=== PATIENT | male | born 1960 | race American Indian/Alaskan Native ===

== ENCOUNTER 2017-10-12 01:47 | Inpatient (IN) | payer OTHER ==
[~2017-10-12] VITALS: Ht 175.3 cm; Wt 75.5 kg
[2017-10-12 02:12] LABS: BASOPHILS ABSOLUTE AUTO 0.09 K/mm3 (0.00-0.23); BASOPHILS PERCENT AUTO 1 % (0-2); EOSINOPHILS ABSOLUTE AUTO 0.28 K/mm3 (0.00-0.68); EOSINOPHILS PERCENT AUTO 3 % (0-6); Hematocrit 37.4 % (37.0-53.0); Hemoglobin 11.7 g/dL (13.5-17.5); IMMATURE GRAN ABSOLUTE AUTO 0.35 K/mm3 (0.00-0.10); IMMATURE GRAN PERCENT AUTO 4 % (0-1); LYMPHOCYTES ABSOLUTE AUTO 3.12 K/mm3 (0.84-5.20); LYMPHOCYTES PERCENT AUTO 32 % (21-46); MONOCYTES ABSOLUTE AUTO 0.67 K/mm3 (0.16-1.47); MONOCYTES PERCENT AUTO 7 % (4-13); Mean Corpuscular HGB 28.5 pg (26.0-34.0); Mean Corpuscular HGB Conc 31.3 g/dL (31.5-36.5); Mean Corpuscular Volume 91 fL (80-100); Mean Platelet Volume 9.5 fL (9.1-12.4); NEUTROPHILS ABSOLUTE AUTO 5.24 K/mm3 (1.96-9.15); NEUTROPHILS PERCENT AUTO 54 % (41-73); Platelet Count 260 K/mm3 (150-400); RDW Coefficient Variation 14.3 % (11.7-14.2); RDW Standard Deviation 47.4 fL (35.1-46.3); Red Blood Cell Count 4.11 M/mm3 (4.30-5.90); White Blood Cell Count 9.75 K/mm3 (4.00-11.30)
[2017-10-12 02:22] LABS: PCO2 Arterial 42.6 mmHg (35-45); PO2 Arterial 52.7 mmHg (80-100)
[2017-10-12 02:26] LABS: Troponin I <0.015 ng/mL (0.000-0.040)
[2017-10-12 02:27] LABS: Alanine Aminotransfer (ALT/SGP 19 U/L (12-78); Albumin, Blood 2.9 g/dL (3.4-5.0); Albumin/Globulin Ratio 0.6 (0.8-1.8); Alk Phos 74 U/L (50-136); Anion Gap 10 mmol/L (6-16); Aspartate Aminotrans (AST/SGOT 20 U/L (12-37); Bilirubin, Total 0.2 mg/dL (0.1-1.0); Blood Urea Nitrogen 20 mg/dL (8-24); Bun/Creatinine Ratio 15.6 (12.0-20.0); CO2, Blood 24 mmol/L (21-32); Calcium, Blood 8.2 mg/dL (8.5-10.1); Chloride, Blood 105 mmol/L (98-108); Creatinine, Blood 1.28 mg/dL (0.60-1.20); Globulin, Blood 4.8 g/dL (2.2-4.0); Glomerular Filtration Rate >60 (60-); Glucose, Blood 204 mg/dL (70-99); Potassium, Blood 3.9 mmol/L (3.5-5.5); Sodium, Blood 139 mmol/L (136-145); Total Protein, Blood 7.7 g/dL (6.4-8.2)
[2017-10-12] MEDS ORDERED: PRAZ1 PO (02:28)
[2017-10-12] MEDS ORDERED: QUET100 PO (02:28)
[2017-10-12] MEDS ORDERED: ATOR20 PO (02:28)
[2017-10-12] MEDS ORDERED: METO25ER PO (02:29)
[2017-10-12] MEDS ORDERED: MIRT15 PO (02:30)
[2017-10-12] MEDS ORDERED: ASPI81CH PO (02:30)
[2017-10-12] MEDS ORDERED: LORA.5 PO (02:30)
[2017-10-12] MEDS ORDERED: TIOT18 INH (02:31)
[2017-10-12] MEDS ORDERED: BUDE6HFA INH (02:31)
[2017-10-12] MEDS ORDERED: HYDPAM25 PO (02:31)
[2017-10-12] MEDS ORDERED: Atrovent Inha12.9 GM INH (02:32)
[2017-10-12] MEDS ORDERED: ALBU90OI INH (02:32)
[2017-10-12] MEDS ORDERED: Oxycodone HCl20 M1 PO (02:33)
[2017-10-12] MEDS ORDERED: FENTANYL1 EAC1 TOP (02:35)
[2017-10-13 15:04] LABS: BASOPHILS ABSOLUTE AUTO 0.12 K/mm3 (0.00-0.23); BASOPHILS PERCENT AUTO 1 % (0-2); EOSINOPHILS ABSOLUTE AUTO 0.42 K/mm3 (0.00-0.68); EOSINOPHILS PERCENT AUTO 4 % (0-6); Hematocrit 38.7 % (37.0-53.0); Hemoglobin 12.2 g/dL (13.5-17.5); IMMATURE GRAN ABSOLUTE AUTO 0.43 K/mm3 (0.00-0.10); IMMATURE GRAN PERCENT AUTO 4 % (0-1); LYMPHOCYTES ABSOLUTE AUTO 1.63 K/mm3 (0.84-5.20); LYMPHOCYTES PERCENT AUTO 16 % (21-46); MONOCYTES ABSOLUTE AUTO 1.16 K/mm3 (0.16-1.47); MONOCYTES PERCENT AUTO 12 % (4-13); Mean Corpuscular HGB 28.2 pg (26.0-34.0); Mean Corpuscular HGB Conc 31.5 g/dL (31.5-36.5); Mean Corpuscular Volume 90 fL (80-100); Mean Platelet Volume 8.9 fL (9.1-12.4); NEUTROPHILS ABSOLUTE AUTO 6.25 K/mm3 (1.96-9.15); NEUTROPHILS PERCENT AUTO 62 % (41-73); Platelet Count 281 K/mm3 (150-400); RDW Coefficient Variation 14.3 % (11.7-14.2); RDW Standard Deviation 46.6 fL (35.1-46.3); Red Blood Cell Count 4.32 M/mm3 (4.30-5.90); White Blood Cell Count 10.01 K/mm3 (4.00-11.30)
[2017-10-13 15:38] LABS: Bun/Creatinine Ratio 10.4 (12.0-20.0); Calcium, Blood 8.5 mg/dL (8.5-10.1); Creatinine, Blood 1.34 mg/dL (0.60-1.20)
[2017-10-15 04:52] LABS: BASOPHILS ABSOLUTE AUTO 0.07 K/mm3 (0.00-0.23); BASOPHILS PERCENT AUTO 1 % (0-2); EOSINOPHILS ABSOLUTE AUTO 0.38 K/mm3 (0.00-0.68); EOSINOPHILS PERCENT AUTO 5 % (0-6); Hematocrit 37.3 % (37.0-53.0); Hemoglobin 11.9 g/dL (13.5-17.5); IMMATURE GRAN ABSOLUTE AUTO 0.25 K/mm3 (0.00-0.10); IMMATURE GRAN PERCENT AUTO 3 % (0-1); LYMPHOCYTES ABSOLUTE AUTO 1.23 K/mm3 (0.84-5.20); LYMPHOCYTES PERCENT AUTO 15 % (21-46); MONOCYTES PERCENT AUTO 10 % (4-13); Mean Corpuscular HGB 28.7 pg (26.0-34.0); Mean Corpuscular HGB Conc 31.9 g/dL (31.5-36.5); Mean Corpuscular Volume 90 fL (80-100); Mean Platelet Volume 9.3 fL (9.1-12.4); NEUTROPHILS ABSOLUTE AUTO 5.68 K/mm3 (1.96-9.15); NEUTROPHILS PERCENT AUTO 68 % (41-73); Platelet Count 264 K/mm3 (150-400); RDW Coefficient Variation 14.3 % (11.7-14.2); RDW Standard Deviation 47.3 fL (35.1-46.3); Red Blood Cell Count 4.15 M/mm3 (4.30-5.90); White Blood Cell Count 8.41 K/mm3 (4.00-11.30)
[2017-10-15 05:18] LABS: Bun/Creatinine Ratio 11.1 (12.0-20.0); Calcium, Blood 8.6 mg/dL (8.5-10.1); Creatinine, Blood 1.35 mg/dL (0.60-1.20); Potassium, Blood 4.2 mmol/L (3.5-5.5)
[2017-10-17 05:14] LABS: BASOPHILS ABSOLUTE AUTO 0.06 K/mm3 (0.00-0.23); BASOPHILS PERCENT AUTO 1 % (0-2); EOSINOPHILS ABSOLUTE AUTO 0.35 K/mm3 (0.00-0.68); EOSINOPHILS PERCENT AUTO 4 % (0-6); Hematocrit 35.2 % (37.0-53.0); Hemoglobin 11.2 g/dL (13.5-17.5); IMMATURE GRAN ABSOLUTE AUTO 0.15 K/mm3 (0.00-0.10); IMMATURE GRAN PERCENT AUTO 2 % (0-1); LYMPHOCYTES ABSOLUTE AUTO 0.89 K/mm3 (0.84-5.20); LYMPHOCYTES PERCENT AUTO 10 % (21-46); MONOCYTES ABSOLUTE AUTO 0.83 K/mm3 (0.16-1.47); MONOCYTES PERCENT AUTO 10 % (4-13); Mean Corpuscular HGB 28.3 pg (26.0-34.0); Mean Corpuscular HGB Conc 31.8 g/dL (31.5-36.5); Mean Corpuscular Volume 89 fL (80-100); Mean Platelet Volume 9.3 fL (9.1-12.4); NEUTROPHILS ABSOLUTE AUTO 6.48 K/mm3 (1.96-9.15); NEUTROPHILS PERCENT AUTO 74 % (41-73); Platelet Count 255 K/mm3 (150-400); RDW Coefficient Variation 14.1 % (11.7-14.2); RDW Standard Deviation 45.3 fL (35.1-46.3); Red Blood Cell Count 3.96 M/mm3 (4.30-5.90); White Blood Cell Count 8.76 K/mm3 (4.00-11.30)
[2017-10-17 05:34] LABS: Anion Gap 6 mmol/L (6-16); Blood Urea Nitrogen 17 mg/dL (8-24); Bun/Creatinine Ratio 13.9 (12.0-20.0); CO2, Blood 28 mmol/L (21-32); Calcium, Blood 8.3 mg/dL (8.5-10.1); Chloride, Blood 102 mmol/L (98-108); Creatinine, Blood 1.22 mg/dL (0.60-1.20); Glomerular Filtration Rate >60 (60-); Glucose, Blood 101 mg/dL (70-99); Potassium, Blood 3.9 mmol/L (3.5-5.5); Sodium, Blood 136 mmol/L (136-145)
== END 2017-10-18 16:12 | disposition home or self-care (01) | DRG 199 ==
LOC: ER 01:47 → MEDS 01:48 → ENPENDDIS 10-18 10:00 → MEDS 10-18 16:12
PROVIDERS: Emergency Medicine; Family Medicine
PROC: 0W9930Z Drainage of Right Pleural Cavity with Drainage Device, Percutaneous Approach (ICD-10-PCS; principal; 2017-10-12)
DX: J93.83 Other pneumothorax (principal); J96.00 Acute respiratory failure, unspecified whether with hypoxia or hypercapnia; C34.90 Malignant neoplasm of unspecified part of unspecified bronchus or lung; J44.9 Chronic obstructive pulmonary disease, unspecified; E78.5 Hyperlipidemia, unspecified; F41.9 Anxiety disorder, unspecified; F17.210 Nicotine dependence, cigarettes, uncomplicated; I10 Essential (primary) hypertension; G89.3 Neoplasm related pain (acute) (chronic); Z79.899 Other long term (current) drug therapy; Z79.82 Long term (current) use of aspirin
CPT/HCPCS: 32551; 36415; 36600; 71045; 71046; 71250; 80048; 80053; 82803; 83605; 84484; 85025; 87040; 93005; 93010; 94640; 94644; 94760; 99285; G0378; J1650; Q0177

== ENCOUNTER 2018-07-20 12:07 | Inpatient (IN) | payer OTHER ==
[~2018-07-20] VITALS: Ht 177.8 cm; Wt 65.3 kg
[~2018-07-20 12:07] MED LIST: ALBU90OI INH; ASPI81CH PO; ATOR20 PO; Atrovent Inha12.9 GM INH; BUDE6HFA INH; FENTANYL1 EAC1 TOP; HYDPAM25 PO; LORA1 PO; METO25ER PO; MIRT15 PO; Oxycodone HCl20 M1 PO; PRAZ1 PO; QUET100 PO; TIOT18 INH
[2018-07-20 12:30] LABS: Hematocrit 42.4 % (37.0-53.0); Hemoglobin 13.2 g/dL (13.5-17.5); Mean Corpuscular HGB 28.1 pg (26.0-34.0); Mean Corpuscular HGB Conc 31.1 g/dL (31.5-36.5); Mean Corpuscular Volume 90 fL (80-100); Mean Platelet Volume 9.6 fL (9.1-12.4); Platelet Count 328 K/mm3 (150-400); RDW Coefficient Variation 15.6 % (11.7-14.2); RDW Standard Deviation 51.5 fL (35.1-46.3); Red Blood Cell Count 4.69 M/mm3 (4.30-5.90); White Blood Cell Count 10.67 K/mm3 (4.00-11.30)
[2018-07-20 12:42] LABS: Troponin I <0.015 ng/mL (0.000-0.040)
[2018-07-20 12:44] LABS: Alanine Aminotransfer (ALT/SGP 35 U/L (12-78); Albumin, Blood 2.9 g/dL (3.4-5.0); Albumin/Globulin Ratio 0.6 (0.8-1.8); Alk Phos 127 U/L (50-136); Anion Gap 10 mmol/L (6-16); Aspartate Aminotrans (AST/SGOT 66 U/L (12-37); Blood Urea Nitrogen 21 mg/dL (8-24); Bun/Creatinine Ratio 16.4 (12.0-20.0); CO2, Blood 23 mmol/L (21-32); Calcium, Blood 8.2 mg/dL (8.5-10.1); Chloride, Blood 104 mmol/L (98-108); Creatinine, Blood 1.28 mg/dL (0.60-1.20); Glomerular Filtration Rate >60 (60-); Glucose, Blood 186 mg/dL (70-99); Sodium, Blood 137 mmol/L (136-145); Total Protein, Blood 7.9 g/dL (6.4-8.2)
[2018-07-20 13:03] LABS: BASOPHILS PERCENT MAN 1 % (0-2); EOSINOPHILS ABSOLUTE MAN 0.21 K/mm3 (0.00-0.68); EOSINOPHILS PERCENT MAN 2 % (0-6); LYMPHOCYTES ABSOLUTE MAN 1.49 K/mm3 (0.84-5.20); LYMPHOCYTES PERCENT MAN 14 % (21-46); METAMYELOCYTE ABSOLUTE MAN 0.53 K/mm3 (0.00-0.00); METAMYELOCYTE PERCENT MAN 5 % (0-0); MONOCYTES ABSOLUTE MAN 0.42 K/mm3 (0.16-1.47); MONOCYTES PERCENT MAN 4 % (4-13); MYELOCYTE ABSOLUTE MAN 0.32 K/mm3 (0.00-0.00); MYELOCYTE PERCENT MAN 3 % (0-0); NEUTROPHILS ABSOLUTE MAN 7.57 K/mm3 (1.96-9.15); SEG NEUTROPHILS PERCENT MAN 71 % (41-73); TOTAL CELLS COUNTED 100
[2018-07-20] MEDS ORDERED: CELE200 PO (15:41)
--- NOTE | 2018-07-20 18:13 | NUR ---
END OF SHIFT; PT ARRIVED TO PCU LATE IN AFTERNOON. HE WAS ON 10LITERS OXYMIZER ON ARRIVAL AND 95% ON SAT MONITOR. PT ABLE TO ANSWER ALL QUESTIONS ABOUT HISTORY BUT IS POOR HISTORIAN ABOUT HIS MEDICINES WHICH HE STATES ARE MANAGED BY HIS SISTER. PT IS NPO AT THIS TIME AND ON BIPAP HE DESATS WHEN HE USED URINAL INTO THE LOW 83% AND DOES NOT RECOVER QUICKLY. HIS SISTER BROUGHT HIS GLASSES AND HIS FALSE TEETH FROM HOME. HIS LUNGS ARE COARSE AND DIM THROUGHOUT, INSPIRATORY AND EXPIRATORY WHEEZES ARE WORSE ON THE LEFT BUT ARE PRESENT ON THE LOWER RIGHT LOBES. WILL CONTINUE TO MONITOR THIS PATIENT UNTIL REPORT AND HAND OFF TO NOC SHIFT RN.
--- NOTE | 2018-07-20 20:50 | NUR ---
PM NOTE. ASSUMED CARE OF PT APROX 1900. PT IS A&Ox4 PLEASENT AND COOPERATIVE WITH CARE, PT WAS ADMITTED DUE TO RESP FAILURE, PT HAS HX OF STAGE 4 LUNG CA. PT IS CURRENTLY ON BIPAP W/STATS IN THE 90'S%. PT'S STATS DROP VERY DRAMATICALLY WHEN THE PT PERFORMS ANY ACTIVITY. TELE INTACT, SR IN THE 90'S PER VISION MIXER, PT'S BP 118/78. NO EDEMA PRESENT ON ASSESSMENT. PT'S L/S COARSE AND WHEEZY T/O. BT PRESENT AND HYPERACTIVE, ABD IS FIRM AND NONTENDER TO PALP. CALL LIGHT IN REACH, BED IS LOCKED AND LOW, WILL CONTINUET TO MONITOR.
[2018-07-21 04:12] LABS: Anion Gap 9 mmol/L (6-16); Blood Urea Nitrogen 23 mg/dL (8-24); Bun/Creatinine Ratio 22.3 (12.0-20.0); CO2, Blood 24 mmol/L (21-32); Chloride, Blood 105 mmol/L (98-108); Creatinine, Blood 1.03 mg/dL (0.60-1.20); Glomerular Filtration Rate >60 (60-); Glucose, Blood 148 mg/dL (70-99); Potassium, Blood 4.7 mmol/L (3.5-5.5); Sodium, Blood 138 mmol/L (136-145)
--- NOTE | 2018-07-21 05:35 | NUR ---
SHIFT SUMMARY. NO ACUTE CHANGES NOTED THIS SHIFT. PT'S VS HAVE BEEN STABLE, PT HAS BEEN OFF OF THE BIPAP MOST OF THIS SHIFT, PT HAS BEEN ON 10L OXYMIZER WITH O2 STATS >90%. PT DID USE THE BIPAP APROX 4 AT THE START OF THIS SHIFT. PT DENIES ANY CHEST PAIN/PRESSURE, N/V AND IS SOB WITH ACTIVITY. PT WAS MEDICATED FOR PAIN AND ANXEITY PER EMAR. CALL LIGHT IN REACH, BED IS LOCKED AND LOW WILL CONTINUE TO MONITOR UNTIL REPOORT IS GIVEN TO ONCOMING RN.
--- NOTE | 2018-07-21 13:57 | NUR ---
Spiritual care visit conducted. Patient was lying in bed and was tearful. I introduced myself and patient explained that he was in the middle of the decision making process regarding weather to go on hospice or not. I listened empathically, I explored patient's belief system and looked at risk verses benefit options. Patient stated that he did not want to make any decisions until he talked to [facility] nurse who was on her way in to see him at the time of this writing. Pateint voiced some spiritual concerns as well and requested that I pray for him. I provided prayer which also led to more tears as patient expressed gratitude. I will continue to remain available.
--- NOTE | 2018-07-21 18:40 | NUR ---
END OF SHIFT SUMMARY; PT HAS BEEN MEDICATED EVERY 4 HOURS FOR PAIN WITH 20MG OXYCODONE. DR. MCDOWELL MET WITH PATIENT AND HIS SISTER TODAY. PER MD PT IS GOING TO RECEIVE ANTIBIOTICS INCASE FLUID IN HIS LUNGS IS PNEUMONIA. ALSO WILL HAVE AN ECHO THIS AFTERNOON OR TOMORROW AM TO CHECK FOR CHF. IF BOTH ARE NEGATIVE AND PT'S O2 DEMAND KEEPS INCREASING IT IS MORE THAN LIKELY PULMONARY FIBROSIS THAT IS ADVANCINE QUICKLY. HOSPICE NURSE FROM [facility] DID MEET WITH PATIENT AND HIS SISTER TODAY AND [facility] WILL SEE HIM TOMORROW. WILL CONTINUE TO MONITOR THIS PATIENT CLOSELY UNTIL REPORT AND HAND OFF TO NOC SHIFT RN.
--- NOTE | 2018-07-22 04:51 | NUR ---
SHIFT SUMMARY PT A&O X4, PLEASANT AND COOPERATIVE. LUNG SOUNDS COARSE/DIM T/O. SPO2 > 90% ON 10L OXYMIZER W/ DESAT TO 80'S W/ ACTIVITY IN BED. PT ON BEDREST FOR THIS REASON. BIPAP AT BEDSIDE, UNUSED BY PT THIS SHIFT. PT C/O PAIN FROM HIS "PELVIS & UP" THIS SHIFT. PT TX'D PER EMAR. MEDIPORT NOTED IN L UPPER CHEST, MEDIPORT NOT ACCESSED. 2 PIV'S. PT RECIEVING IV ABX. PT RECIEVED SPONGE BATH BY MALE RN BEGINNING OF SHIFT PER PT REQUEST TO NOT BE SEEN BY HIS FEMALE NURSE. PT THEN SLEEPING MAJORITY OF NIGHT. PALLIATIVE CARE NURSE TO SEE PT DURING DAY SHIFT. WILL CONTINUE TO MONITOR AND PROVIDE CARE UNTIL REPORT OFF TO DAY SHIFT RN.
--- NOTE | 2018-07-22 08:00 | NUR ---
PT PLEASANT COOP TALKATIVE. TALKING SOME ABOUT CANCER. PAIN 8/10 WANTS 5/10, MED PER EMAR. PAIN IN TRUNK. H/R REG, NO MURMER NOTED. TELE: NSR WITH PVC'S AT 94. LUNGS CLEAR, RESP EASY, UNLABORED. ON 11L OXYMIZER. RESP LABORED, 20, BT X4 LAST BM TODAY. VOIDS URINAL. BECOMES VERY SOB WITH ANY ACTITY. IS ON BEDREST AT THIS TIME. BED IN LOW POSITION, CALL LITE IN REACH, CALLS APPROP
--- NOTE | 2018-07-22 11:30 | NUR ---
PT ASKED FOR MORE PAIN MEDS. TOO SOON. REQUESTED WE MOVE UP TO [address] SPOKE TO [address] DIAZ. HE STATES NO CHANGE ON 11L O2, NOT SAFE TO GIVE MORE, MAY DEC RESP. RELAYED TO PT.
--- NOTE | 2018-07-22 16:25 | NUR ---
Scott expressed fear and the desire for forgiveness. He spoke at length about his childhood and struggles throughout his life. He says he is not fearful of , but of suffering. He responded well to gentle spiritual direction and prayer. Clearly, he will benefit from continued spiritual support. He has an easy rapport with Murali Morris who will be available to provide compassionate christian counselor Tuesday. I will remain available.
[2018-07-22 17:05] LABS: Vancomycin, Trough 8.6 ug/mL (5.0-10.0)
--- NOTE | 2018-07-22 18:00 | NUR ---
PT PLEASANT TODAY. HAS HAD ROXANOL ADDED TO PAIN MED. STATES DID HELP. HAS HAD SEVERAL FAMILY MEMBERS IN TODAY. PT STATES BETTER CONTROL. DID HAVE O2 DROPPED TO 9L TODAY. HOLDING 89-90% . NO OTHER CONCERNS AT THIS TIME. BED IN LOW POSITION, ,CALL LITE IN REACH, CALLS APPROP
--- NOTE | 2018-07-23 06:26 | NUR ---
SHIFT SUMMARY: PATIENT VSS, NO CHANGES NOTED, STILL EASILY DESATURATES WITH ANY MOVEMENT/SPEECH/EATING. BED LOW AND LOCKED, CALL LIGHT WITHN REACH.
--- NOTE | 2018-07-23 09:09 | NUR ---
BEGINNING OF SHIFT Assumed care of pt at 0700. Bedside report recieved from Alisha ANAND. Pt on 9 LPM via high flow NC at time of report. Shift assessment completed. Pt requested to sit on bedside commode for bowel movement. Pt sat on edge of bed with minimal difficulty. Pt assisted to bedside commode. Severe dyspnea with exertion. Pt able to have bowel movement and requested to go back to bed and be cleaned up in bed. This was done for the patient. Pt desaturated into low 70s. Pt required placement on nonrebreather at 15 LPM with activity. Pt is currently in bed with 15 LPM via oxymizer. Will continue to closely monitor. Bed in lowest position. Call light in reach. Pt denies need at this time.
[2018-07-23 16:25] LABS: Creatinine, Blood 1.37 mg/dL (0.60-1.20); Vancomycin, Trough 14.7 ug/mL (5.0-10.0)
--- NOTE | 2018-07-23 16:49 | NUR ---
SHIFT SUMMARY Pt sat up in chair for about 30 minutes today. Pt tolerated transfer to and from chair well. At this time, he is on 9 LPM via high flow NC. No additional changes t/o shift. Will continue to closely monitor until care handoff and bedside report with oncoming RN.
--- NOTE | 2018-07-23 19:35 | NUR ---
pt has had multiple conversation with phsyicians and staff. wanting to think about things will see plan and oxygen use and have chaplian see mariela again to gently address goals.
--- NOTE | 2018-07-23 19:40 | NUR ---
ASSUMED CARE OF PT, REPORT RECEIVED. PT IS RESTING QUIETLY RECLINING IN BED. SENTANCES ARE NOTED SHORT AT 2-3 WORDS, AUDIBLE WHEEZING FROM DOORWAY, PT STATES THAT BREATHING DOES FEEL IMPROVED FROM ADMISSION ALTHOUGH STILL MARKEDLY MORE SHORT OF BREATH THAN HIS BASELINE, LUNGS WITH EXP WHEEZES THROUGHOUT, FINE CRACKLES TO BILAT BASES, PT STATES THAT ROXANOL HAS BEEN HELPING TO CONTROL AIR HUNGER AND PAIN, CONT BIOX IN PLACE, SATS MAINTAINING LOW 90S WITH OXYGEN AT 9 L/MIN VIA HIGH FLOW NASAL CANNULA. PROLONGED EXPIRATORY PHASE IS NOTED, INCREASED WORK OF BREATHING AND INCREASED DYSPNEA ARE NOTED WITH PT ATTEMPTS TO REPOSITION SELF IN BED.
--- NOTE | 2018-07-24 05:56 | NUR ---
PT RESTS QUIETLY THROUGHOUT SHIFT, CONTINUES TO HAVE MARKED DYSPNEA WITH ANY INCREASE IN ACTIVITY. REQUESTED ROXANOL FREQUENTLY THROUGHOUT SHIFT TO ASSIST WITH FEELINGS OF AIR HUNGER AND PAIN, RATES PAIN WELL CONTROLLED AT POST PAIN SCORES. BIPAP TOLERATED FOR LESS THAN 30 MINUTES THIS SHIFT.
[2018-07-24 09:56] LABS: Anion Gap 6 mmol/L (6-16); Blood Urea Nitrogen 26 mg/dL (8-24); Bun/Creatinine Ratio 20.2 (12.0-20.0); CO2, Blood 28 mmol/L (21-32); Calcium, Blood 8.4 mg/dL (8.5-10.1); Chloride, Blood 105 mmol/L (98-108); Creatinine, Blood 1.29 mg/dL (0.60-1.20); Glomerular Filtration Rate >60 (60-); Glucose, Blood 114 mg/dL (70-99); Potassium, Blood 4.6 mmol/L (3.5-5.5); Sodium, Blood 139 mmol/L (136-145)
--- NOTE | 2018-07-24 11:15 | NUR ---
I entered room to find patient with the bed in the upright position but resting. He awoke quickly to the sound of his name. Patient expressed gratitude for my visit and for my privious time spent in conversations with him. Because therapeutic alliance was already established patient readily shared past loss of loved ones, confession of sins and current list of anxiety causing thoughts. I discussed comfort care as an option here at the hospital but patient did not comprehend and asked for further discussion about this topic when his sister Jigna returned. I listened empathically, provided grief auto club travel counselor, worked on anxiety containment and provided prayer for peace and forgiveness. Patient voiced his appreciation and showed signs of reduced stress and elevated mood.
--- NOTE | 2018-07-24 12:13 | NUR ---
Case conference with RN and ASHLEY, review of EMR prior to my visit with pt. Visit made after introduction. Pt was tearful and expressed his nervousness with calling close friends to tell them what was going on, giving them news of his decision to return home with hospice. When I asked if I could help, pt was very grateful and asked if I would call or contact two of his friends who live out of state. I contacted them at the bedside and relayed messages of love and support to pt next to me. Pt relieved that is done. Assessment done. Pt reports pain is well managed but air hunger and anxiety continue to be poorly controlled at times. I contacted Dr to request dose change in ativan and verbal orders obtained/entered and discussed with RN. Pt is appreciative and finds the ativan helpful when he has received it. No nonverbal indicators of pain noted. Anxiety and fear noted and expressed by pt. His sister is coming in later to work with ASHLEY Arthur, re: dc plans for returning home and set up of hospice services there. [facility] will remain available for s/s management and support as indicated.
--- NOTE | 2018-07-24 14:52 | NUR ---
Spiritual care visit conducted. Patient asked me on 07/21/18 if I could provide inspirational guitar and singing and due to scheduling and patients condition we agreed that 07/24/18 would be a better day. So to fulfill patient's request I provided music therapy to which the patient and his sister were very appreciative of. I also provided prayer for the patient and the family which was also met with much gratitude.
[2018-07-24] MEDS ORDERED: BUDE.25 INH (16:52)
[2018-07-24] MEDS ORDERED: PRED20 PO (16:53)
[2018-07-24] MEDS ORDERED: MORP20L PO (16:54)
[2018-07-24] MEDS ORDERED: ONDA4ODT PO (16:55)
[2018-07-24] MEDS ORDERED: ALBU2.5V5 INH (17:02)
--- NOTE | 2018-07-24 17:57 | NUR ---
DISCHARGE Assumed care of pt at 0700 from Arely ANAND. Shift assessment completed. Plan of care discussed with Dara from Palliative Care and Rick from [employer]. This RN notified both that pt and his sister (primary caregiver) had strong desire for pt to go home on hospice; preferrably today. This RN educated the patient and his sister of the process of comfort care, medications used, and therapeutic effects of medication as well as side effects (constipation and respiratory depression). The pt's sister verbalized understanding. Pt had two episodes of respiratory distress today. The first episode occurred after the patient laid back in bed after sitting up on the edge of the bed. Pt required BiPAP support for less than five minutes. Pt had another episode late this morning, accompanied with anxiety, that alleviated by titrating up oxygen and providing verbal direction. Written prescriptions provided to pt's sister for comfort medications until the patient is able to meet with hospice tomorrow. Pt discharged wearing 10 LPM via oxymizer. Pt departed on gurney. Mediport access discontinued. IV access removed. Telemetry discontinued. Education provided to pt's sister, who verbalized understanding. Unit phone number provided, in case additional questions arise.
== END 2018-07-24 17:26 | disposition home or self-care (01) | DRG 196 ==
LOC: ER 12:07 → PCU 14:15
PROVIDERS: Emergency Medicine; Internal Medicine; Internal Medicine Critical Care Medicine; ADMIT Internal Medicine
DX: J84.112 Idiopathic pulmonary fibrosis (principal); J96.21 Acute and chronic respiratory failure with hypoxia; J18.9 Pneumonia, unspecified organism; F11.20 Opioid dependence, uncomplicated; F20.0 Paranoid schizophrenia; F10.230 Alcohol dependence with withdrawal, uncomplicated; J44.9 Chronic obstructive pulmonary disease, unspecified; I25.10 Atherosclerotic heart disease of native coronary artery without angina pectoris; I10 Essential (primary) hypertension; Z95.5 Presence of coronary angioplasty implant and graft; F43.10 Post-traumatic stress disorder, unspecified; F17.210 Nicotine dependence, cigarettes, uncomplicated; F41.8 Other specified anxiety disorders; Z85.118 Personal history of other malignant neoplasm of bronchus and lung; Z99.81 Dependence on supplemental oxygen
CPT/HCPCS: 36415; 71045; 71260; 80048; 80053; 80202; 82565; 83880; 84484; 85025; 93005; 93010; 93306; 94640; 94660; 94762; 96361; 96374; 96375; 99285-25; J1642; J1650; J2060; J2543; J2920; J2930; J3370; J7030; J7050; Q9967